=== PATIENT | female | born 1960 | race Caucasian/White ===

== ENCOUNTER 2017-07-14 10:31 | Inpatient (IN) | payer MEDICAID ==
[~2017-07-14] VITALS: Ht 160 cm; Wt 74.2 kg
[2017-07-14 11:10] LABS: BASOPHIL % 0.6 % (0-2); PLATELET COUNT 248 x10^3mcL (130-400); RED CELL DISTRIBUTION WIDTH 13.9 % (11.5-14.5)
[2017-07-14 11:23] LABS: CALCIUM 9.5 mg/dL (8.5-10.1); CARBON DIOXIDE 29.2 mmol/L (21-32); CHLORIDE SERUM 104 mmol/L (98-107); GFR1 > 60 mL/min; GLUCOSE SERUM 80 mg/dL (74-106); POTASSIUM SERUM 3.8 mmol/L (3.5-5.1); SODIUM SERUM 141 mmol/L (136-145)
[2017-07-14 11:28] LABS: ALBUMIN 3.6 g/dL (3.4-5.0); ALKALINE PHOSPHATASE 65 U/L (46-116); ALT/SGPT 36 U/L (14-59); AMYLASE 51 U/L (25-115); AST/SGOT 22 U/L (15-37); BILIRUBIN TOTAL 0.6 mg/dL (0.20-1.00); LIPASE 132 IU/L (73-393)
[2017-07-14 11:30] LABS: TOTAL PROTEIN, SERUM 8.3 g/dL (6.4-8.2)
[2017-07-14 12:00] LABS: microscopic required? YES; urine erythrocyte TRACE (NEGATIVE)
[2017-07-14 15:24] LABS: CHOLESTEROL/HDL RATIO 3.7; PHOSPHOROUS 2.9 mg/dL (2.5-4.9)
[2017-07-14 15:47] LABS: FREE T4 1.03 ng/dL (0.76-1.46); FREE THYROXINE INDEX 2.8 ug/dL (1.4-4.5); T4(THYROXINE) 8.9 ug/dL (4.7-13.3)
[2017-07-14 15:52] LABS: T3 TOTAL 1.38 ng/mL
[2017-07-14 16:33] VITALS: BP 136/88
[2017-07-14 21:38] VITALS: BP 148/87
[2017-07-15 05:53] VITALS: BP 128/88
[2017-07-15 06:19] LABS: BASOPHIL % 0.3 % (0-2); PLATELET COUNT 213 x10^3mcL (130-400); RED CELL DISTRIBUTION WIDTH 13.9 % (11.5-14.5)
[2017-07-15 06:35] LABS: CALCIUM 8.8 mg/dL (8.5-10.1); CARBON DIOXIDE 29.8 mmol/L (21-32); CHLORIDE SERUM 107 mmol/L (98-107); CREATININE SERUM 0.8 mg/dL (0.6-1.0); GFR1 > 60 mL/min; GLUCOSE SERUM 93 mg/dL (74-106); POTASSIUM SERUM 4.2 mmol/L (3.5-5.1); SODIUM SERUM 143 mmol/L (136-145)
[2017-07-16 02:25] VITALS: BP 132/66
[2017-07-16 06:35] VITALS: BP 145/83
[2017-07-16 06:36] LABS: BASOPHIL % 0.3 % (0-2); PLATELET COUNT 226 x10^3mcL (130-400); RED CELL DISTRIBUTION WIDTH 14.1 % (11.5-14.5)
[2017-07-16 06:50] LABS: CALCIUM 9.1 mg/dL (8.5-10.1); CARBON DIOXIDE 28.4 mmol/L (21-32); CHLORIDE SERUM 106 mmol/L (98-107); CREATININE SERUM 0.7 mg/dL (0.6-1.0); GFR1 > 60 mL/min; GLUCOSE SERUM 89 mg/dL (74-106); POTASSIUM SERUM 3.8 mmol/L (3.5-5.1); SODIUM SERUM 142 mmol/L (136-145)
[2017-07-16 10:06] VITALS: BP 127/80
[2017-07-16 14:10] VITALS: BP 135/91
[2017-07-16 17:14] VITALS: BP 138/81
[2017-07-16 20:46] VITALS: BP 142/92
[2017-07-17 05:13] VITALS: BP 154/87
[2017-07-17 06:20] LABS: CALCIUM 9.1 mg/dL (8.5-10.1); CARBON DIOXIDE 26.8 mmol/L (21-32); CHLORIDE SERUM 106 mmol/L (98-107); CREATININE SERUM 0.7 mg/dL (0.6-1.0); GFR1 > 60 mL/min; GLUCOSE SERUM 81 mg/dL (74-106); POTASSIUM SERUM 3.8 mmol/L (3.5-5.1); SODIUM SERUM 141 mmol/L (136-145)
[2017-07-17 06:58] LABS: BASOPHIL % 0.4 % (0-2); PLATELET COUNT 225 x10^3mcL (130-400); RED CELL DISTRIBUTION WIDTH 14.1 % (11.5-14.5)
[2017-07-17 10:10] VITALS: BP 146/92
[2017-07-17] MEDS ORDERED: COL100 PO (12:36)
[2017-07-17] MEDS ORDERED: BACO TOP (12:39)
[2017-07-17] MEDS ORDERED: ANUHCC PR (12:40)
[2017-07-17] MEDS ORDERED: MIRALAX17 GM PO (12:42)
[2017-07-17 13:09] VITALS: BP 146/92
== END 2017-07-17 14:00 | disposition home or self-care (01) | DRG 247 ==
LOC: ED 10:31 → DU 13:38
PROVIDERS: Emergency Medicine; ADMIT Family Medicine Sports Medicine
DX: K56.41 Fecal impaction (principal); N17.0 Acute kidney failure with tubular necrosis; K76.0 Fatty (change of) liver, not elsewhere classified; N39.0 Urinary tract infection, site not specified; R73.03 Prediabetes; B18.2 Chronic viral hepatitis C; E78.1 Pure hyperglyceridemia; K21.9 Gastro-esophageal reflux disease without esophagitis; K64.4 Residual hemorrhoidal skin tags; Z68.29 Body mass index [BMI] 29.0-29.9, adult; Z22.322 Carrier or suspected carrier of Methicillin resistant Staphylococcus aureus
CPT/HCPCS: 82962; 83880; 84439; J0696; J2270; J2405; J7030; J7042; Q0092; Q9967

== ENCOUNTER 2020-09-19 06:57 | Inpatient (IN) | payer OTHER, SELFPAY ==
[~2020-09-19] VITALS: Ht 157.5 cm; Wt 82.0 kg
[~2020-09-19 06:57] MED LIST: ANUHCC PR; BACO TOP; COL100 PO; MIRALAX17 GM PO
[2020-09-19 07:03] VITALS: Ht 157.5 cm; Wt 82.0 kg
[2020-09-19 07:55] LABS: BASOPHIL % 0.8 % (0.2-1.3); PLATELET COUNT 237 x10^3mcL (179-408); RED CELL DISTRIBUTION WIDTH 13.8 % (12.3-17.7)
[2020-09-19 08:41] LABS: CALCIUM 9.1 mg/dL (8.5-10.1); CARBON DIOXIDE 25.1 mmol/L (21-32); CHLORIDE SERUM 101 mmol/L (98-107); CREATININE SERUM 0.9 mg/dL (0.6-1.0); GFR1 > 60 mL/min; GLUCOSE SERUM 145 mg/dL (74-106); POTASSIUM SERUM 3.4 mmol/L (3.5-5.1); SODIUM SERUM 138 mmol/L (136-145)
[2020-09-19 08:47] LABS: ALBUMIN 3.2 g/dL (3.4-5.0); ALKALINE PHOSPHATASE 59 U/L (46-116); ALT/SGPT 45 U/L (14-59); AST/SGOT 53 U/L (15-37); BILIRUBIN TOTAL 0.4 mg/dL (0.20-1.00); C REACTIVE PROTEIN 3.7 mg/dL (<=0.9); LACTIC DEHYDROGENASE (LDH) 411 U/L (100-190); TOTAL PROTEIN, SERUM 7.5 g/dL (6.4-8.2)
[2020-09-19 10:37] LABS: CHOLESTEROL/HDL RATIO 2.8; MAGNESIUM 2.5 mg/dL (1.8-2.4); PHOSPHOROUS 3.7 mg/dL (2.5-4.9)
[2020-09-19 10:44] LABS: T3 TOTAL 1.09 ng/mL
[2020-09-19 10:47] LABS: FREE T4 1.23 ng/dL (0.76-1.46)
[2020-09-19 12:52] VITALS: BP 121/80
[2020-09-19 14:51] VITALS: BP 144/88
[2020-09-19 17:09] VITALS: BP 111/67
[2020-09-19 20:21] VITALS: BP 107/61
[2020-09-20 05:37] VITALS: BP 97/47
[2020-09-20 09:24] VITALS: BP 113/66
[2020-09-20 09:26] LABS: BASOPHIL % 0.1 % (0.2-1.3); PLATELET COUNT 215 x10^3mcL (179-408); RED CELL DISTRIBUTION WIDTH 13.6 % (12.3-17.7)
[2020-09-20 09:38] LABS: CALCIUM 8.1 mg/dL (8.5-10.1); CARBON DIOXIDE 25.5 mmol/L (21-32); CHLORIDE SERUM 107 mmol/L (98-107); CREATININE SERUM 0.8 mg/dL (0.6-1.0); GFR1 > 60 mL/min; GLUCOSE SERUM 123 mg/dL (74-106); POTASSIUM SERUM 3.7 mmol/L (3.5-5.1); SODIUM SERUM 144 mmol/L (136-145)
[2020-09-20 09:50] LABS: BILIRUBIN DIRECT 0.14 mg/dL (0.0-0.2); BILIRUBIN TOTAL 0.39 mg/dL (0.20-1.00); TOTAL PROTEIN, SERUM 6.4 g/dL (6.4-8.2)
[2020-09-20 09:55] LABS: ALBUMIN 2.5 g/dL (3.4-5.0)
[2020-09-20 12:34] VITALS: BP 105/63
[2020-09-20 17:22] VITALS: BP 103/58
[2020-09-20 22:13] VITALS: BP 101/56
[2020-09-21 06:48] VITALS: BP 109/59
[2020-09-21 09:44] VITALS: BP 100/59
[2020-09-21 09:52] LABS: BASOPHIL % 0.1 % (0.2-1.3); PLATELET COUNT 248 x10^3mcL (179-408); RED CELL DISTRIBUTION WIDTH 13.7 % (12.3-17.7)
[2020-09-21 10:13] LABS: ALKALINE PHOSPHATASE 57 U/L (46-116); ALT/SGPT 34 U/L (14-59); AST/SGOT 38 U/L (15-37); BILIRUBIN DIRECT 0.17 mg/dL (0.0-0.2); CALCIUM 8.3 mg/dL (8.5-10.1); CARBON DIOXIDE 24.8 mmol/L (21-32); CHLORIDE SERUM 104 mmol/L (98-107); CREATININE SERUM 0.7 mg/dL (0.6-1.0); GFR1 > 60 mL/min; GLUCOSE SERUM 133 mg/dL (74-106); POTASSIUM SERUM 3.5 mmol/L (3.5-5.1); SODIUM SERUM 140 mmol/L (136-145); TOTAL PROTEIN, SERUM 6.5 g/dL (6.4-8.2)
[2020-09-21 10:16] LABS: ALBUMIN 2.6 g/dL (3.4-5.0)
[2020-09-21 13:36] VITALS: BP 117/66
[2020-09-21 16:14] VITALS: BP 105/55
[2020-09-21 20:25] VITALS: BP 140/83
[2020-09-22 04:26] VITALS: BP 123/75
[2020-09-22 07:23] LABS: ALKALINE PHOSPHATASE 60 U/L (46-116); ALT/SGPT 34 U/L (14-59); AST/SGOT 31 U/L (15-37); BILIRUBIN DIRECT 0.15 mg/dL (0.0-0.2); BILIRUBIN TOTAL 0.6 mg/dL (0.20-1.00); CARBON DIOXIDE 25.6 mmol/L (21-32); CHLORIDE SERUM 105 mmol/L (98-107); CREATININE SERUM 0.7 mg/dL (0.6-1.0); GFR1 > 60 mL/min; GLUCOSE SERUM 80 mg/dL (74-106); POTASSIUM SERUM 3.6 mmol/L (3.5-5.1); SODIUM SERUM 141 mmol/L (136-145); TOTAL PROTEIN, SERUM 6.2 g/dL (6.4-8.2)
[2020-09-22 07:29] LABS: ALBUMIN 2.5 g/dL (3.4-5.0)
[2020-09-22 07:45] LABS: RED CELL DISTRIBUTION WIDTH 13.5 % (12.3-17.7)
[2020-09-22 07:48] LABS: BASOPHIL % 0.1 % (0.2-1.3); PLATELET COUNT 286 x10^3mcL (179-408)
[2020-09-22 08:40] VITALS: BP 109/59
[2020-09-22 11:44] VITALS: BP 128/80
[2020-09-22 16:56] VITALS: BP 130/86
[2020-09-22 21:50] VITALS: BP 127/70
[2020-09-23 03:50] VITALS: BP 122/73
[2020-09-23 07:39] LABS: BILIRUBIN DIRECT 0.33 mg/dL (0.0-0.2); BILIRUBIN TOTAL 0.85 mg/dL (0.20-1.00); TOTAL PROTEIN, SERUM 6.2 g/dL (6.4-8.2)
[2020-09-23 07:40] LABS: ALBUMIN 2.7 g/dL (3.4-5.0)
[2020-09-23 08:30] VITALS: BP 128/64
[2020-09-23 12:14] VITALS: BP 121/60
[2020-09-23 15:54] VITALS: BP 119/68
[2020-09-23 21:15] VITALS: BP 133/74
[2020-09-24 05:08] VITALS: BP 106/78
[2020-09-24 07:47] LABS: BASOPHIL % 0.3 % (0.2-1.3); RED CELL DISTRIBUTION WIDTH 13.5 % (12.3-17.7)
[2020-09-24 07:51] LABS: PLATELET COUNT 420 x10^3mcL (179-408)
[2020-09-24 08:36] LABS: CALCIUM 8.3 mg/dL (8.5-10.1); CARBON DIOXIDE 23.9 mmol/L (21-32); CHLORIDE SERUM 104 mmol/L (98-107); CREATININE SERUM 0.7 mg/dL (0.6-1.0); GFR1 > 60 mL/min; GLUCOSE SERUM 93 mg/dL (74-106); POTASSIUM SERUM 3.7 mmol/L (3.5-5.1); SODIUM SERUM 139 mmol/L (136-145)
[2020-09-24 09:14] VITALS: BP 114/73
[2020-09-24 12:14] VITALS: BP 112/72
[2020-09-24 17:27] VITALS: BP 118/83
[2020-09-24 21:06] VITALS: BP 123/67
[2020-09-25 05:20] VITALS: BP 121/68
[2020-09-25 06:42] LABS: BASOPHIL % 0.2 % (0.2-1.3); PLATELET COUNT 382 x10^3mcL (179-408); RED CELL DISTRIBUTION WIDTH 13.6 % (12.3-17.7)
[2020-09-25 08:38] LABS: CALCIUM 9.1 mg/dL (8.5-10.1); CARBON DIOXIDE 22.9 mmol/L (21-32); CHLORIDE SERUM 104 mmol/L (98-107); CREATININE SERUM 0.7 mg/dL (0.6-1.0); GFR1 > 60 mL/min; GLUCOSE SERUM 92 mg/dL (74-106); POTASSIUM SERUM 3.8 mmol/L (3.5-5.1); SODIUM SERUM 141 mmol/L (136-145)
[2020-09-25 09:00] VITALS: BP 107/73
[2020-09-25 12:29] VITALS: BP 111/72
[2020-09-25 16:55] VITALS: BP 113/78
[2020-09-25 20:55] VITALS: BP 121/73
[2020-09-26 04:40] VITALS: BP 120/71
[2020-09-26 08:41] VITALS: BP 125/77
[2020-09-26 12:05] VITALS: BP 108/70
[2020-09-26 16:46] VITALS: BP 111/71
[2020-09-26 21:12] VITALS: BP 122/77
[2020-09-27 05:32] VITALS: BP 122/76
[2020-09-27 08:39] LABS: BASOPHIL % 0.2 % (0.2-1.3); PLATELET COUNT 380 x10^3mcL (179-408); RED CELL DISTRIBUTION WIDTH 13.6 % (12.3-17.7)
[2020-09-27 08:59] VITALS: BP 115/76
[2020-09-27 09:28] LABS: CALCIUM 8.9 mg/dL (8.5-10.1); CARBON DIOXIDE 23.8 mmol/L (21-32); CHLORIDE SERUM 103 mmol/L (98-107); CREATININE SERUM 0.7 mg/dL (0.6-1.0); GFR1 > 60 mL/min; GLUCOSE SERUM 70 mg/dL (74-106); POTASSIUM SERUM 3.9 mmol/L (3.5-5.1); SODIUM SERUM 139 mmol/L (136-145)
[2020-09-27 12:42] VITALS: BP 113/74
[2020-09-27 17:33] VITALS: BP 110/72
[2020-09-27 21:45] VITALS: BP 120/76
[2020-09-28 05:40] VITALS: BP 105/63
[2020-09-28 08:02] LABS: BASOPHIL % 0.5 % (0.2-1.3); PLATELET COUNT 326 x10^3mcL (179-408); RED CELL DISTRIBUTION WIDTH 13.6 % (12.3-17.7)
[2020-09-28 08:12] LABS: CALCIUM 8.9 mg/dL (8.5-10.1); CARBON DIOXIDE 26.1 mmol/L (21-32); CHLORIDE SERUM 103 mmol/L (98-107); CREATININE SERUM 0.8 mg/dL (0.6-1.0); GFR1 > 60 mL/min; GLUCOSE SERUM 145 mg/dL (74-106); POTASSIUM SERUM 3.5 mmol/L (3.5-5.1); SODIUM SERUM 137 mmol/L (136-145)
[2020-09-28 09:09] VITALS: BP 113/7; BP 113/70
[2020-09-28 12:45] VITALS: BP 102/59
[2020-09-28 17:24] VITALS: BP 113/71
[2020-09-28 20:26] VITALS: BP 121/70
[2020-09-29 05:09] VITALS: BP 106/67
[2020-09-29 07:07] LABS: BASOPHIL % 0.4 % (0.2-1.3); PLATELET COUNT 276 x10^3mcL (179-408); RED CELL DISTRIBUTION WIDTH 13.6 % (12.3-17.7)
[2020-09-29 08:16] LABS: CALCIUM 9.2 mg/dL (8.5-10.1); CARBON DIOXIDE 26.1 mmol/L (21-32); CHLORIDE SERUM 104 mmol/L (98-107); CREATININE SERUM 0.8 mg/dL (0.6-1.0); GFR1 > 60 mL/min; GLUCOSE SERUM 83 mg/dL (74-106); POTASSIUM SERUM 3.9 mmol/L (3.5-5.1); SODIUM SERUM 139 mmol/L (136-145)
[2020-09-29 08:34] VITALS: BP 98/54
[2020-09-29 12:24] VITALS: BP 106/72
[2020-09-29 16:41] VITALS: BP 106/74
[2020-09-29 19:46] VITALS: BP 108/64
[2020-09-30 04:47] VITALS: BP 120/62
[2020-09-30 07:22] LABS: BASOPHIL % 0.3 % (0.2-1.3); PLATELET COUNT 236 x10^3mcL (179-408); RED CELL DISTRIBUTION WIDTH 13.5 % (12.3-17.7)
[2020-09-30 07:43] LABS: CALCIUM 8.4 mg/dL (8.5-10.1); CARBON DIOXIDE 26.8 mmol/L (21-32); CHLORIDE SERUM 102 mmol/L (98-107); CREATININE SERUM 0.9 mg/dL (0.6-1.0); GFR1 > 60 mL/min; GLUCOSE SERUM 81 mg/dL (74-106); MAGNESIUM 1.9 mg/dL (1.8-2.4); SODIUM SERUM 133 mmol/L (136-145)
[2020-09-30 08:49] VITALS: BP 118/59
[2020-09-30 11:32] VITALS: BP 119/78
[2020-09-30 16:48] VITALS: BP 108/65
[2020-09-30 20:35] VITALS: BP 111/71
[2020-10-01] VITALS (7 sets, daily range): BP systolic 86–180; BP diastolic 52–105
[2020-10-01 06:25] LABS: BASOPHIL % 0.7 % (0.2-1.3); CALCIUM 9.1 mg/dL (8.5-10.1); CARBON DIOXIDE 27.9 mmol/L (21-32); CHLORIDE SERUM 102 mmol/L (98-107); CREATININE SERUM 0.9 mg/dL (0.6-1.0); GFR1 > 60 mL/min; GLUCOSE SERUM 93 mg/dL (74-106); PLATELET COUNT 205 x10^3mcL (179-408); POTASSIUM SERUM 4.5 mmol/L (3.5-5.1); RED CELL DISTRIBUTION WIDTH 13.9 % (12.3-17.7); SODIUM SERUM 137 mmol/L (136-145)
[2020-10-02] VITALS (11 sets, daily range): BP systolic 92–122; BP diastolic 54–69
[2020-10-03] VITALS (12 sets, daily range): BP systolic 85–147; BP diastolic 41–77
[2020-10-03 06:42] LABS: BASOPHIL % 0.1 % (0.2-1.3); PLATELET COUNT 130 x10^3mcL (179-408); RED CELL DISTRIBUTION WIDTH 13.9 % (12.3-17.7)
[2020-10-03 07:05] LABS: CALCIUM 8.3 mg/dL (8.5-10.1); CARBON DIOXIDE 34.3 mmol/L (21-32); CHLORIDE SERUM 105 mmol/L (98-107); CREATININE SERUM 0.6 mg/dL (0.6-1.0); GFR1 > 60 mL/min; GLUCOSE SERUM 138 mg/dL (74-106); MAGNESIUM 2.4 mg/dL (1.8-2.4); POTASSIUM SERUM 4.9 mmol/L (3.5-5.1); SODIUM SERUM 139 mmol/L (136-145)
[2020-10-04] VITALS (10 sets, daily range): BP systolic 86–123; BP diastolic 51–73
[2020-10-04 06:22] LABS: BASOPHIL % 0.2 % (0.2-1.3); RED CELL DISTRIBUTION WIDTH 14.1 % (12.3-17.7)
[2020-10-04 06:35] LABS: PLATELET COUNT 101 x10^3mcL (179-408)
[2020-10-04 06:54] LABS: CALCIUM 8.2 mg/dL (8.5-10.1); CARBON DIOXIDE 37.9 mmol/L (21-32); CHLORIDE SERUM 102 mmol/L (98-107); CREATININE SERUM 0.7 mg/dL (0.6-1.0); GFR1 > 60 mL/min; GLUCOSE SERUM 132 mg/dL (74-106); POTASSIUM SERUM 4.7 mmol/L (3.5-5.1); SODIUM SERUM 137 mmol/L (136-145)
[2020-10-05] VITALS (11 sets, daily range): BP systolic 93–150; BP diastolic 54–88
[2020-10-05 06:41] LABS: BASOPHIL % 0.4 % (0.2-1.3); RED CELL DISTRIBUTION WIDTH 13.8 % (12.3-17.7)
[2020-10-05 07:23] LABS: CALCIUM 7.8 mg/dL (8.5-10.1); CHLORIDE SERUM 95 mmol/L (98-107); CREATININE SERUM 0.7 mg/dL (0.6-1.0); GFR1 > 60 mL/min; GLUCOSE SERUM 91 mg/dL (74-106); POTASSIUM SERUM 4.2 mmol/L (3.5-5.1); SODIUM SERUM 136 mmol/L (136-145)
[2020-10-05 07:25] LABS: CARBON DIOXIDE 40.8 mmol/L (21-32)
[2020-10-05 07:42] LABS: PLATELET COUNT 78 x10^3mcL (179-408)
[2020-10-06] VITALS (11 sets, daily range): BP systolic 95–108; BP diastolic 44–61
[2020-10-06 07:11] LABS: BASOPHIL % 0.6 % (0.2-1.3); CHLORIDE SERUM 96 mmol/L (98-107); CREATININE SERUM 0.7 mg/dL (0.6-1.0); GFR1 > 60 mL/min; GLUCOSE SERUM 198 mg/dL (74-106); POTASSIUM SERUM 3.9 mmol/L (3.5-5.1); RED CELL DISTRIBUTION WIDTH 13.6 % (12.3-17.7); SODIUM SERUM 134 mmol/L (136-145)
[2020-10-06 07:14] LABS: CARBON DIOXIDE 40.1 mmol/L (21-32)
[2020-10-06 07:30] LABS: PLATELET COUNT 92 x10^3mcL (179-408)
[2020-10-07] VITALS (8 sets, daily range): BP systolic 100–118; BP diastolic 50–67
[2020-10-07 05:53] LABS: BASOPHIL % 1.2 % (0.2-1.3); RED CELL DISTRIBUTION WIDTH 14.2 % (12.3-17.7)
[2020-10-07 06:02] LABS: PLATELET COUNT 105 x10^3mcL (179-408)
[2020-10-07 06:11] LABS: CALCIUM 8.2 mg/dL (8.5-10.1); CHLORIDE SERUM 102 mmol/L (98-107); CREATININE SERUM 0.7 mg/dL (0.6-1.0); GFR1 > 60 mL/min; GLUCOSE SERUM 104 mg/dL (74-106); POTASSIUM SERUM 3.8 mmol/L (3.5-5.1); SODIUM SERUM 143 mmol/L (136-145)
[2020-10-07 06:16] LABS: CARBON DIOXIDE 43.4 mmol/L (21-32)
[2020-10-08] VITALS (11 sets, daily range): BP systolic 82–120; BP diastolic 49–68
[2020-10-08 06:00] LABS: BASOPHIL % 0.9 % (0.2-1.3)
[2020-10-08 06:10] LABS: CHLORIDE SERUM 102 mmol/L (98-107); CREATININE SERUM 0.5 mg/dL (0.6-1.0); GFR1 > 60 mL/min; GLUCOSE SERUM 70 mg/dL (74-106); POTASSIUM SERUM 3.6 mmol/L (3.5-5.1); SODIUM SERUM 144 mmol/L (136-145)
[2020-10-08 06:15] LABS: CARBON DIOXIDE > 45.0 mmol/L (21-32)
[2020-10-08 07:50] LABS: PLATELET COUNT 112 x10^3mcL (179-408)
[2020-10-09] VITALS (11 sets, daily range): BP systolic 92–205; BP diastolic 48–71
[2020-10-09 05:56] LABS: CALCIUM 7.7 mg/dL (8.5-10.1); CHLORIDE SERUM 100 mmol/L (98-107); CREATININE SERUM 0.6 mg/dL (0.6-1.0); GFR1 > 60 mL/min; GLUCOSE SERUM 105 mg/dL (74-106); POTASSIUM SERUM 4.1 mmol/L (3.5-5.1); SODIUM SERUM 142 mmol/L (136-145)
[2020-10-09 07:17] LABS: CARBON DIOXIDE > 45.0 mmol/L (21-32)
[2020-10-09 07:55] LABS: PLATELET COUNT 75 x10^3mcL (179-408); RED CELL DISTRIBUTION WIDTH 14.7 % (12.3-17.7)
[2020-10-09 10:41] LABS: BAND NEUTROPHIL 3 % (0-10); MONOCYTE 4 % (0-7); SEGMENTED NEUTROPHILS 81 % (37-75)
[2020-10-09 10:42] LABS: BASOPHIL 0 % (0-2); rbc morphology (normal/abnorm) ABNORMAL (NORMAL)
[2020-10-09 11:46] LABS: PLATELET COUNT 159 x10^3mcL (179-408); RED CELL DISTRIBUTION WIDTH 13.9 % (12.3-17.7)
[2020-10-09 12:15] LABS: BASOPHIL 1 % (0-2); MONOCYTE 3 % (0-7); SEGMENTED NEUTROPHILS 76 % (37-75)
[2020-10-09 12:17] LABS: PLATELET MORPHOLOGY PLATELETS NORMAL
[2020-10-10] VITALS (12 sets, daily range): BP systolic 98–142; BP diastolic 56–83
[2020-10-10 06:46] LABS: BASOPHIL % 0.6 % (0.2-1.3); PLATELET COUNT 204 x10^3mcL (179-408); RED CELL DISTRIBUTION WIDTH 14.3 % (12.3-17.7)
[2020-10-10 07:02] LABS: CALCIUM 7.9 mg/dL (8.5-10.1); CHLORIDE SERUM 100 mmol/L (98-107); CREATININE SERUM 0.5 mg/dL (0.6-1.0); GFR1 > 60 mL/min; GLUCOSE SERUM 137 mg/dL (74-106); POTASSIUM SERUM 4.1 mmol/L (3.5-5.1); SODIUM SERUM 140 mmol/L (136-145)
[2020-10-10 07:29] LABS: CARBON DIOXIDE 44.4 mmol/L (21-32)
[2020-10-11] VITALS (12 sets, daily range): BP systolic 11–153; BP diastolic 2–86
[2020-10-11 06:54] LABS: BASOPHIL % 1.1 % (0.2-1.3); PLATELET COUNT 267 x10^3mcL (179-408); RED CELL DISTRIBUTION WIDTH 14.5 % (12.3-17.7)
[2020-10-11 07:15] LABS: CALCIUM 8.3 mg/dL (8.5-10.1); CHLORIDE SERUM 102 mmol/L (98-107); CREATININE SERUM 0.6 mg/dL (0.6-1.0); GFR1 > 60 mL/min; GLUCOSE SERUM 119 mg/dL (74-106); POTASSIUM SERUM 3.8 mmol/L (3.5-5.1); SODIUM SERUM 141 mmol/L (136-145)
[2020-10-11 07:37] LABS: CARBON DIOXIDE 42.1 mmol/L (21-32)
[2020-10-12] VITALS (12 sets, daily range): BP systolic 93–103; BP diastolic 54–62
[2020-10-12 06:26] LABS: CALCIUM 8.5 mg/dL (8.5-10.1); CHLORIDE SERUM 103 mmol/L (98-107); CREATININE SERUM 0.5 mg/dL (0.6-1.0); GFR1 > 60 mL/min; GLUCOSE SERUM 95 mg/dL (74-106); POTASSIUM SERUM 3.7 mmol/L (3.5-5.1); SODIUM SERUM 141 mmol/L (136-145)
[2020-10-12 06:51] LABS: CARBON DIOXIDE 43.8 mmol/L (21-32)
[2020-10-12 11:01] LABS: BASOPHIL % 0.4 % (0.2-1.3); PLATELET COUNT 269 x10^3mcL (179-408)
[2020-10-12 11:04] LABS: RED CELL DISTRIBUTION WIDTH 14.8 % (12.3-17.7)
[2020-10-13] VITALS (14 sets, daily range): BP systolic 92–126; BP diastolic 35–77
[2020-10-13 05:43] LABS: BASOPHIL % 0.9 % (0.2-1.3); PLATELET COUNT 299 x10^3mcL (179-408)
[2020-10-13 06:01] LABS: RED CELL DISTRIBUTION WIDTH 14.8 % (12.3-17.7)
[2020-10-13 06:04] LABS: C REACTIVE PROTEIN 5.1 mg/dL (<=0.9); CALCIUM 8.7 mg/dL (8.5-10.1); CARBON DIOXIDE 39.8 mmol/L (21-32); CHLORIDE SERUM 102 mmol/L (98-107); CREATININE SERUM 0.5 mg/dL (0.6-1.0); GFR1 > 60 mL/min; GLUCOSE SERUM 100 mg/dL (74-106); POTASSIUM SERUM 3.3 mmol/L (3.5-5.1); SODIUM SERUM 140 mmol/L (136-145)
[2020-10-14] VITALS (15 sets, daily range): BP systolic 89–133; BP diastolic 51–81
[2020-10-14 06:12] LABS: BASOPHIL % 0.6 % (0.2-1.3); PLATELET COUNT 383 x10^3mcL (179-408)
[2020-10-14 06:22] LABS: CALCIUM 9.2 mg/dL (8.5-10.1); CARBON DIOXIDE 28.8 mmol/L (21-32); CHLORIDE SERUM 102 mmol/L (98-107); CREATININE SERUM 0.5 mg/dL (0.6-1.0); GFR1 > 60 mL/min; GLUCOSE SERUM 105 mg/dL (74-106); POTASSIUM SERUM 3.4 mmol/L (3.5-5.1); SODIUM SERUM 138 mmol/L (136-145)
[2020-10-14 06:34] LABS: RED CELL DISTRIBUTION WIDTH 15.1 % (12.3-17.7)
[2020-10-15] VITALS (14 sets, daily range): BP systolic 110–136; BP diastolic 58–83
[2020-10-15 06:23] LABS: BASOPHIL % 0.4 % (0.2-1.3); PLATELET COUNT 355 x10^3mcL (179-408)
[2020-10-15 06:36] LABS: CALCIUM 8.9 mg/dL (8.5-10.1); CHLORIDE SERUM 106 mmol/L (98-107); CREATININE SERUM 0.4 mg/dL (0.6-1.0); GFR1 > 60 mL/min; GLUCOSE SERUM 118 mg/dL (74-106); POTASSIUM SERUM 3.4 mmol/L (3.5-5.1); SODIUM SERUM 142 mmol/L (136-145)
[2020-10-15 06:50] LABS: RED CELL DISTRIBUTION WIDTH 15.7 % (12.3-17.7)
[2020-10-16] VITALS (16 sets, daily range): BP systolic 99–142; BP diastolic 55–89
[2020-10-16 07:41] LABS: BASOPHIL % 0.9 % (0.2-1.3)
[2020-10-16 07:57] LABS: PLATELET COUNT 377 x10^3mcL (179-408)
[2020-10-16 08:08] LABS: CALCIUM 8.9 mg/dL (8.5-10.1); CARBON DIOXIDE 29.1 mmol/L (21-32); CHLORIDE SERUM 103 mmol/L (98-107); CREATININE SERUM 0.4 mg/dL (0.6-1.0); GFR1 > 60 mL/min; GLUCOSE SERUM 121 mg/dL (74-106); POTASSIUM SERUM 3.9 mmol/L (3.5-5.1); SODIUM SERUM 137 mmol/L (136-145)
[2020-10-17] VITALS (16 sets, daily range): BP systolic 94–152; BP diastolic 50–84
[2020-10-18] VITALS (16 sets, daily range): BP systolic 96–158; BP diastolic 49–91
[2020-10-18 02:10] LABS: CALCIUM 9.1 mg/dL (8.5-10.1); CARBON DIOXIDE 29.7 mmol/L (21-32); CHLORIDE SERUM 102 mmol/L (98-107); CREATININE SERUM 0.4 mg/dL (0.6-1.0); GFR1 > 60 mL/min; GLUCOSE SERUM 96 mg/dL (74-106); POTASSIUM SERUM 3.7 mmol/L (3.5-5.1); SODIUM SERUM 140 mmol/L (136-145)
[2020-10-18 06:04] LABS: BASOPHIL % 1.3 % (0.2-1.3); PLATELET COUNT 353 x10^3mcL (179-408)
[2020-10-18 06:15] LABS: CALCIUM 8.6 mg/dL (8.5-10.1); CARBON DIOXIDE 30.4 mmol/L (21-32); CHLORIDE SERUM 102 mmol/L (98-107); CREATININE SERUM 0.4 mg/dL (0.6-1.0); GFR1 > 60 mL/min; GLUCOSE SERUM 103 mg/dL (74-106); POTASSIUM SERUM 3.4 mmol/L (3.5-5.1); SODIUM SERUM 139 mmol/L (136-145)
[2020-10-18 06:35] LABS: RED CELL DISTRIBUTION WIDTH 18.2 % (12.3-17.7)
[2020-10-18 11:48] LABS: PLATELET COUNT 388 x10^3mcL (130-400); RED CELL DISTRIBUTION WIDTH 17.8 % (11.5-14.5)
[2020-10-18 11:49] LABS: BASOPHIL % 1 % (0-2)
[2020-10-19] VITALS (14 sets, daily range): BP systolic 97–154; BP diastolic 57–90
[2020-10-19 06:11] LABS: PLATELET COUNT 383 x10^3mcL (179-408)
[2020-10-19 06:23] LABS: CALCIUM 9.2 mg/dL (8.5-10.1); CARBON DIOXIDE 29.1 mmol/L (21-32); CHLORIDE SERUM 99 mmol/L (98-107); CREATININE SERUM 0.3 mg/dL (0.6-1.0); GFR1 > 60 mL/min; GLUCOSE SERUM 94 mg/dL (74-106); POTASSIUM SERUM 3.6 mmol/L (3.5-5.1); SODIUM SERUM 137 mmol/L (136-145)
[2020-10-19 06:35] LABS: RED CELL DISTRIBUTION WIDTH 18.4 % (12.3-17.7)
[2020-10-19 08:21] LABS: BAND NEUTROPHIL 3 % (0-10); MONOCYTE 1 % (0-7); PLATELET MORPHOLOGY PLATELETS NORMAL; SEGMENTED NEUTROPHILS 86 % (37-75); rbc morphology (normal/abnorm) ABNORMAL (NORMAL)
[2020-10-20] VITALS (13 sets, daily range): BP systolic 103–152; BP diastolic 55–90
[2020-10-20 05:57] LABS: BASOPHIL % 1.5 % (0.2-1.3); PLATELET COUNT 341 x10^3mcL (179-408)
[2020-10-20 06:05] LABS: ALKALINE PHOSPHATASE 93 U/L (46-116); ALT/SGPT 114 U/L (14-59); AST/SGOT 78 U/L (15-37); BILIRUBIN TOTAL 1.2 mg/dL (0.20-1.00); CALCIUM 8.5 mg/dL (8.5-10.1); CARBON DIOXIDE 31.7 mmol/L (21-32); CHLORIDE SERUM 101 mmol/L (98-107); CREATININE SERUM 0.4 mg/dL (0.6-1.0); GFR1 > 60 mL/min; GLUCOSE SERUM 80 mg/dL (74-106); POTASSIUM SERUM 3.6 mmol/L (3.5-5.1); SODIUM SERUM 138 mmol/L (136-145); TOTAL PROTEIN, SERUM 6.2 g/dL (6.4-8.2)
[2020-10-20 06:08] LABS: ALBUMIN 1.9 g/dL (3.4-5.0)
[2020-10-20 06:21] LABS: RED CELL DISTRIBUTION WIDTH 18.6 % (12.3-17.7)
[2020-10-21] VITALS (15 sets, daily range): BP systolic 101–131; BP diastolic 50–71
[2020-10-21 05:36] LABS: PLATELET COUNT 317 x10^3mcL (179-408)
[2020-10-21 05:53] LABS: CALCIUM 9.1 mg/dL (8.5-10.1); CARBON DIOXIDE 36.5 mmol/L (21-32); CHLORIDE SERUM 103 mmol/L (98-107); CREATININE SERUM 0.4 mg/dL (0.6-1.0); GFR1 > 60 mL/min; GLUCOSE SERUM 134 mg/dL (74-106); POTASSIUM SERUM 4.2 mmol/L (3.5-5.1); SODIUM SERUM 138 mmol/L (136-145)
[2020-10-21 06:18] LABS: RED CELL DISTRIBUTION WIDTH 18.6 % (12.3-17.7)
[2020-10-21 06:53] LABS: BAND NEUTROPHIL 2 % (0-10); MONOCYTE 4 % (0-7); SEGMENTED NEUTROPHILS 89 % (37-75); rbc morphology (normal/abnorm) NORMAL (NORMAL)
[2020-10-22] VITALS (16 sets, daily range): BP systolic 101–153; BP diastolic 60–92
[2020-10-22 05:08] LABS: CALCIUM 9.2 mg/dL (8.5-10.1); CARBON DIOXIDE 38.7 mmol/L (21-32); CHLORIDE SERUM 103 mmol/L (98-107); CREATININE SERUM 0.4 mg/dL (0.6-1.0); GFR1 > 60 mL/min; GLUCOSE SERUM 132 mg/dL (74-106); POTASSIUM SERUM 3.4 mmol/L (3.5-5.1); SODIUM SERUM 140 mmol/L (136-145)
[2020-10-22 05:16] LABS: BASOPHIL % 0.5 % (0.2-1.3); PLATELET COUNT 270 x10^3mcL (179-408)
[2020-10-22 05:25] LABS: RED CELL DISTRIBUTION WIDTH 18.4 % (12.3-17.7)
[2020-10-23] VITALS (14 sets, daily range): BP systolic 96–180; BP diastolic 54–104
[2020-10-23 05:49] LABS: BASOPHIL % 0.9 % (0.2-1.3); PLATELET COUNT 277 x10^3mcL (179-408)
[2020-10-23 06:04] LABS: CALCIUM 9.2 mg/dL (8.5-10.1); CARBON DIOXIDE 39.6 mmol/L (21-32); CHLORIDE SERUM 102 mmol/L (98-107); CREATININE SERUM 0.4 mg/dL (0.6-1.0); GFR1 > 60 mL/min; GLUCOSE SERUM 117 mg/dL (74-106); SODIUM SERUM 142 mmol/L (136-145)
[2020-10-23 06:05] LABS: RED CELL DISTRIBUTION WIDTH 18.5 % (12.3-17.7)
[2020-10-24] VITALS (15 sets, daily range): BP systolic 100–162; BP diastolic 57–85
[2020-10-24 05:32] LABS: CALCIUM 9.3 mg/dL (8.5-10.1); CARBON DIOXIDE 37.3 mmol/L (21-32); CHLORIDE SERUM 99 mmol/L (98-107); CREATININE SERUM 0.4 mg/dL (0.6-1.0); GFR1 > 60 mL/min; GLUCOSE SERUM 133 mg/dL (74-106); POTASSIUM SERUM 3.5 mmol/L (3.5-5.1); SODIUM SERUM 139 mmol/L (136-145)
[2020-10-24 06:42] LABS: BASOPHIL % 0.7 % (0.2-1.3); PLATELET COUNT 295 x10^3mcL (179-408)
[2020-10-24 07:03] LABS: RED CELL DISTRIBUTION WIDTH 18.8 % (12.3-17.7)
[2020-10-25] VITALS (16 sets, daily range): BP systolic 91–144; BP diastolic 51–76
[2020-10-25 05:54] LABS: CARBON DIOXIDE 37.6 mmol/L (21-32); CHLORIDE SERUM 99 mmol/L (98-107); CREATININE SERUM 0.4 mg/dL (0.6-1.0); GFR1 > 60 mL/min; GLUCOSE SERUM 163 mg/dL (74-106); POTASSIUM SERUM 3.2 mmol/L (3.5-5.1); SODIUM SERUM 140 mmol/L (136-145)
[2020-10-25 09:18] LABS: PLATELET COUNT 278 x10^3mcL (179-408)
[2020-10-25 09:20] LABS: RED CELL DISTRIBUTION WIDTH 18.9 % (12.3-17.7)
[2020-10-25 10:26] LABS: BAND NEUTROPHIL 4 % (0-10); MONOCYTE 4 % (0-7); SEGMENTED NEUTROPHILS 66 % (37-75); rbc morphology (normal/abnorm) ABNORMAL (NORMAL)
[2020-10-25 10:27] LABS: PLATELET MORPHOLOGY PLATELETS NORMAL
[2020-10-26] VITALS (18 sets, daily range): BP systolic 96–119; BP diastolic 48–66
[2020-10-27] VITALS (19 sets, daily range): BP systolic 93–111; BP diastolic 40–65
[2020-10-27 05:42] LABS: BASOPHIL % 0.2 % (0.2-1.3); PLATELET COUNT 257 x10^3mcL (179-408)
[2020-10-27 05:57] LABS: RED CELL DISTRIBUTION WIDTH 19.1 % (12.3-17.7)
[2020-10-27 06:01] LABS: CALCIUM 8.2 mg/dL (8.5-10.1); CARBON DIOXIDE 35.6 mmol/L (21-32); CHLORIDE SERUM 100 mmol/L (98-107); CREATININE SERUM 0.5 mg/dL (0.6-1.0); GFR1 > 60 mL/min; GLUCOSE SERUM 138 mg/dL (74-106); MAGNESIUM 1.9 mg/dL (1.8-2.4); SODIUM SERUM 138 mmol/L (136-145)
[2020-10-28] VITALS (14 sets, daily range): BP systolic 101–124; BP diastolic 59–85
[2020-10-28 05:52] LABS: BASOPHIL % 0.5 % (0.2-1.3); PLATELET COUNT 283 x10^3mcL (179-408)
[2020-10-28 05:53] LABS: RED CELL DISTRIBUTION WIDTH 20.2 % (12.3-17.7)
[2020-10-28 06:05] LABS: CALCIUM 9.3 mg/dL (8.5-10.1); CARBON DIOXIDE 37.3 mmol/L (21-32); CHLORIDE SERUM 99 mmol/L (98-107); CREATININE SERUM 0.5 mg/dL (0.6-1.0); GFR1 > 60 mL/min; GLUCOSE SERUM 133 mg/dL (74-106); POTASSIUM SERUM 3.8 mmol/L (3.5-5.1); SODIUM SERUM 138 mmol/L (136-145)
[2020-10-29] VITALS (10 sets, daily range): BP systolic 97–125; BP diastolic 53–71
[2020-10-29 05:35] LABS: BASOPHIL % 0.3 % (0.2-1.3); PLATELET COUNT 296 x10^3mcL (179-408)
[2020-10-29 05:44] LABS: CALCIUM 9.1 mg/dL (8.5-10.1); CARBON DIOXIDE 36.8 mmol/L (21-32); CHLORIDE SERUM 98 mmol/L (98-107); CREATININE SERUM 0.4 mg/dL (0.6-1.0); GFR1 > 60 mL/min; GLUCOSE SERUM 134 mg/dL (74-106); POTASSIUM SERUM 3.7 mmol/L (3.5-5.1); SODIUM SERUM 136 mmol/L (136-145)
[2020-10-29 05:50] LABS: RED CELL DISTRIBUTION WIDTH 19.7 % (12.3-17.7)
[2020-10-29 06:23] LABS: ALKALINE PHOSPHATASE 84 U/L (46-116); ALT/SGPT 41 U/L (14-59); AST/SGOT 30 U/L (15-37); BILIRUBIN TOTAL 0.5 mg/dL (0.20-1.00); CARBON DIOXIDE 37.8 mmol/L (21-32); CHLORIDE SERUM 98 mmol/L (98-107); CREATININE SERUM 0.4 mg/dL (0.6-1.0); GFR1 > 60 mL/min; GLUCOSE SERUM 124 mg/dL (74-106); POTASSIUM SERUM 3.8 mmol/L (3.5-5.1); SODIUM SERUM 137 mmol/L (136-145); TOTAL PROTEIN, SERUM 6.2 g/dL (6.4-8.2)
[2020-10-29 06:26] LABS: BASOPHIL % 0.3 % (0.2-1.3); PLATELET COUNT 278 x10^3mcL (179-408)
[2020-10-29 06:38] LABS: ALBUMIN 1.7 g/dL (3.4-5.0)
[2020-10-29 06:51] LABS: RED CELL DISTRIBUTION WIDTH 19.9 % (12.3-17.7)
== END 2020-10-30 00:28 | DRG 4 ==
LOC: ED 06:57 → DU 09:02 → IC 09:02 → DU 11:30 → IC 10-01 11:13
PROVIDERS: Internal Medicine; Internal Medicine Critical Care Medicine; Specialist; Surgery; ADMIT Family Medicine; ATTEND Family Medicine
PROC: XW13325 Transfusion of Convalescent Plasma (Nonautologous) into Peripheral Vein, Percutaneous Approach, New Technology Group 5 (ICD-10-PCS; 2020-09-19)
PROC: 02HV33Z Insertion of Infusion Device into Superior Vena Cava, Percutaneous Approach (ICD-10-PCS; 2020-09-23)
PROC: XW033E5 Introduction of Remdesivir Anti-infective into Peripheral Vein, Percutaneous Approach, New Technology Group 5 (ICD-10-PCS; principal; 2020-10-01)
PROC: 5A1955Z Respiratory Ventilation, Greater than 96 Consecutive Hours (ICD-10-PCS; 2020-10-01)
PROC: 5A09357 Assistance with Respiratory Ventilation, Less than 24 Consecutive Hours, Continuous Positive Airway Pressure (ICD-10-PCS; 2020-10-01)
PROC: 0BH17EZ Insertion of Endotracheal Airway into Trachea, Via Natural or Artificial Opening (ICD-10-PCS; 2020-10-01)
PROC: 0DH68UZ Insertion of Feeding Device into Stomach, Via Natural or Artificial Opening Endoscopic (ICD-10-PCS; 2020-10-19)
PROC: 0B110F4 Bypass Trachea to Cutaneous with Tracheostomy Device, Open Approach (ICD-10-PCS; 2020-10-19 14:00)
PROC: 06HY33Z Insertion of Infusion Device into Lower Vein, Percutaneous Approach (ICD-10-PCS; 2020-10-26)
PROC: 06HY33Z Insertion of Infusion Device into Lower Vein, Percutaneous Approach (ICD-10-PCS; 2020-10-26)
DX: A41.9 Sepsis, unspecified organism (principal); U07.1 COVID-19; J12.82 Pneumonia due to coronavirus disease 2019; J80 Acute respiratory distress syndrome; R65.21 Severe sepsis with septic shock; N17.0 Acute kidney failure with tubular necrosis; E44.1 Mild protein-calorie malnutrition; E87.3 Alkalosis; J45.901 Unspecified asthma with (acute) exacerbation; K21.9 Gastro-esophageal reflux disease without esophagitis; E87.6 Hypokalemia; E66.9 Obesity, unspecified; D63.8 Anemia in other chronic diseases classified elsewhere; Z86.19 Personal history of other infectious and parasitic diseases; Z79.899 Other long term (current) drug therapy; Z79.891 Long term (current) use of opiate analgesic; Z79.01 Long term (current) use of anticoagulants; Z68.30 Body mass index [BMI] 30.0-30.9, adult
CPT/HCPCS: 31500; 36556; 36600; 43235; 82962; 83880; 84439; 85378; 87107; 87804; A4628; C1769; G0378; J0360; J0456; J0690; J0696; J1100; J1120; J1170; J1642; J1644; J1650; J1815; J1940; J2001; J2020; J2060; J2250; J2270; J2543; J2704; J3010; J3370; J3480; J3490; J3535; J7030; J7040; J7050; J7060; J7120; U0003